=== PATIENT | female | born 1990 | race Caucasian/White ===

== ENCOUNTER 2022-08-27 21:00 | Emergency (ER) | payer BC ==
[2022-08-27] MEDS ORDERED: Ketorolac 30 MG/ML SDV ONE (23:40)
[2022-08-28] MEDS ORDERED: HYDROmorphone 1 MG/ML Syringe ONE (00:05)
[2022-08-28] MEDS: Iopamidol 612 MG/ML 100 ML Bottle IV SCH (01:00)
[2022-08-28] MEDS: Sodium Chloride 0.9% 50 ML IV SCH (01:00)
[2022-09-20] MEDS ORDERED: Iopamidol 755 Mg/ML 100 ML Bottle IV SCH (11:00)
[2022-09-20] MEDS ORDERED: Sodium Chloride 0.9% 50 ML IV SCH (11:00)
[2022-09-20 19:35] LABS: CORONAVIRUS COVID-19 NAA NEGATIVE (NEGATIVE)
[2022-09-20 19:50] LABS: ESTIMATED GFR 57 mL/min (>60)
[2022-09-20 19:51] LABS: TROPONIN I HIGH SENSITIVITY 20.9 pg/mL (<=60.3)
[2022-09-27] MEDS ORDERED: Iopamidol 612 MG/ML 100 ML Bottle IV SCH (23:39)
== END 2022-08-28 01:00 | disposition home or self-care (01) ==
LOC: JP.ED 21:00
DX: J18.9 Pneumonia, unspecified organism (principal); J90 Pleural effusion, not elsewhere classified; I30.9 Acute pericarditis, unspecified; J10.89 Influenza due to other identified influenza virus with other manifestations
CPT/HCPCS: 0241U; 29125; 36415; 71046; 71275; 80053; 84484; 84703; 85027; 85379; 86140; 93005; 99283; J1170; J1885; J3490; Q9967